=== PATIENT | female | born 1995 | race Caucasian/White ===

== ENCOUNTER → 2020-12-11 | Outpatient (CLI) | payer OTHER ==
[~2020-12-11] MED LIST: ISOVUE-300 61% 50ML VIAL As Ordered ONE; LIDOCAINE 1% MDV 20ML VIAL As Ordered ONE; TRIAMCINOLONE ACETONIDE SUSP 40 MG/ML VIAL (J3301) As Ordered ONE
--- NOTE | 2020-12-11 15:51 | REP ---
INDICATION: ISCHIAL LIGAMENT SPRAIN LEFT HIP. COMPARISON: None. TECHNIQUE: The procedure was performed under the direct supervision of Dr. Nash. The benefits and risks including but not limited to pain infection and bleeding and anaphylaxis were explained to the patient and informed consent was obtained. The left femoral neck was localized using fluoroscopic guidance. The skin was prepped and draped in a sterile fashion. 1% lidocaine was used as a local anesthetic. Using fluoroscopic guidance a 22-gauge spinal needle was inserted and advanced to the femoral neck. 0.5 ml of Isovue-300 was injected to verify placement. 10 ml of a solution containing 9 ml of 1% Xylocaine and 1 ml of Kenalog 40 mg was injected. The needle was then removed. The patient tolerated the procedure well and there were no immediate complications. Less than 6 seconds of fluoro time was utilized for this procedure. FINDINGS: None IMPRESSION: Fluoro guidance for left hip injection. <Electronically signed by Valdo Mcdonald > 12/11/20 [id number] <Electronically signed by James Nash > 12/11/20 1546
== END ==
LOC: M RADPRO 12:55
PROVIDERS: ATTEND Orthopaedic Surgery
DX: M25.552 Pain in left hip (principal); M24.851 Other specific joint derangements of right hip, not elsewhere classified
CPT/HCPCS: 20610; 77002; J3301; Q9967